=== PATIENT | male | born 1950 | race Caucasian/White ===

== ENCOUNTER 2022-11-25 21:03 | Emergency (ER) | payer MEDICARE ==
[2022-11-25 22:15] LABS: ALT 27 U/L (4-49); AST 52 U/L (17-59); African American GFR (CKD) 66 (>60 ml/min/1.73 sqM); Albumin 4.5 g/dL (3.5-5.0); Alkaline Phosphatase 123 U/L (38-126); Anion Gap 14 mmol/L; Blood Urea Nitrogen 18 mg/dL (9-20); Carbon Dioxide 19 mmol/L (22-30); Chloride 104 mmol/L (98-107); Glucose 138 mg/dL (74-99); Lipase 107 U/L (23-300); Magnesium 2.1 mg/dL (1.6-2.3); Non-African American GFR(CKD) 57 (>60 ml/min/1.73 sqM); Sodium 137 mmol/L (137-145); Total Bilirubin 0.9 mg/dL (0.2-1.3); Total Protein 8.3 g/dL (6.3-8.2)
[2022-11-25 22:16] LABS: Basophils % (A) 0 %; Eosinophils # (A) 0.1 k/uL (0-0.7); Eosinophils % (A) 1 %; HCT 38.6 % (39.0-53.0); HGB 12.7 gm/dL (13.0-17.5); Lymphocytes # (A) 0.8 k/uL (1.0-4.8); Lymphocytes % (A) 8 %; MCH 26.7 pg (25.0-35.0); MCHC 32.9 g/dL (31.0-37.0); Mean Platelet Volume 9.3; Monocytes # (A) 0.4 k/uL (0-1.0); Monocytes % (A) 4 %; Neutrophils # (A) 9.1 k/uL (1.3-7.7); Neutrophils % (A) 87 %; Platelet Count 208 k/uL (150-450); RBC 4.76 m/uL (4.30-5.90); RDW 14.3 % (11.5-15.5); WBC 10.6 k/uL (3.8-10.6)
--- NOTE | 2022-11-25 22:18 | ED ---
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 The patient stated he had significant diarrhea over the last several days with associated nausea and vomiting today. The patient did state that he was started on Ozempic as a child for his psoriasis and stated "I have never been regular or heavy normal bowel movement since that time." The patient did state that he had significant pain in the left lower quadrant of his abdomen without any radiation. The patient had multiple surgeries in his abdomen including multiple scarring surgeries from multiple hernia surgeries. The patient himself denied any fevers or chills and was resting in bed comfortably. - Related Data Home Medications Medication Instructions Recorded Confirmed ALPRAZolam [Xanax] 1 mg PO Q12HR PRN 01/17/14 05/18/14 Aspirin 81 mg PO DAILY 01/17/14 05/18/14 FLUoxetine HCL [PROzac] 40 mg PO HS 05/11/14 05/18/14 HYDROcodone/APAP 10-325MG [[place] 1 each PO Q12HR PRN 05/11/14 05/18/14 10] Metoprolol Tartrate [Lopressor] 100 mg PO HS 05/11/14 05/18/14 Previous Rx's Medication Instructions Recorded HYDROcodone/APAP 10-325MG [[place] 1 - 2 tab PO Q4HR PRN #60 tab 05/18/14 10] Ketorolac [Toradol] 10 mg PO TID #30 tab 11/26/22 Allergies Allergy/AdvReac Type Severity Reaction Status Date / Time No Known Allergies Allergy Verified 11/25/22 21:11 Review of Systems ROS Statement: Those systems with pertinent positive or pertinent negative responses have been documented in the HPI. ROS Other: All systems not noted in ROS Statement are negative. Past Medical History Past Medical History: Fibromyalgia, Hyperlipidemia, Hypertension, Skin Disorder Additional Past Medical History / Comment(s): arthritis, hx migraines, sinus problems, hiatalhernia, psoriasis, fell 11/20/14- has bruise and splint on left arm (fx elbow). 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 had abscess in throat after surgery 01/2014 at [facility] Past Psychological History: Anxiety, Depression Smoking Status: Never smoker Past Alcohol Use History: Occasional Past Drug Use History: None Reported General Exam Limitations: no limitations General appearance: alert, in no apparent distress Head exam: Present: atraumatic, normocephalic, normal inspection Eye exam: Present: normal appearance, PERRL Pupils: Present: normal accommodation ENT exam: Present: normal exam, normal oropharynx, mucous membranes moist Neck exam: Present: normal inspection, full ROM Respiratory exam: Present: normal lung sounds bilaterally Cardiovascular Exam: Present: regular rate, normal rhythm, normal heart sounds GI/Abdominal exam: Present: soft, tenderness (Tenderness of patient noted over the left lower quadrant. There was a large scar noted on the left lower quadrant as well.) Extremities exam: Present: normal inspection, other (Baseline postsurgical deformity noted to the left hand) Back exam: Present: normal inspection, full ROM Neurological exam: Present: alert, oriented X3, CN II-XII intact Psychiatric exam: Present: normal affect, normal mood Skin exam: Present: warm, dry Course Vital Signs 11/25/22 11/26/22 21:11 01:25 Temperature 98.1 F 97.9 F Pulse Rate 63 77 Respiratory 18 16 Rate Blood Pressure 181/82 131/80 O2 Sat by Pulse 98 97 Oximetry Medical Decision Making - Medical Decision Making Was pt. sent in by a medical professional or institution (, PA, MARKETING TECHNOLOGY SPECIALIST, urgent care, hospital, or [facility]...) When possible be specific @ -No Did you speak to anyone other than the patient for history (EMS, parent, family, police, friend...)? What history was obtained from this source @ -No Did you review nursing and triage notes (agree or disagree)? Why? @ -I reviewed and agree with nursing and triage notes Were old charts reviewed (outside hosp., previous admission, EMS record, old EKG, old radiological studies, urgent care reports/EKG's, [facility] records)? Report findings @ -No old charts were reviewed Differential Diagnosis (chest pain, altered mental status, abdominal pain women, abdominal pain men, vaginal bleeding, weakness, fever, dyspnea, syncope, headache, dizziness, GI bleed, back pain, seizure, CVA, palpatations, mental health)? @ -Small bowel obstruction, diverticulitis, gastroenteritis EKG interpreted by me (3pts min.). @ -None X-rays interpreted by me (1pt min.). @ -None done CT interpreted by me (1pt min.). @ -CT abdomen and pelvis with IV contrast was obtained and was interpreted by myself showing thickening and inflammatory changes involving a short segment of sigmoid colon which appears to be slightly narrowed just proximal to the above- mentioned vomited process. This could be infectious or inflammatory etiology however and underlying masses thought to be more likely as there is associated lymphadenopathy in this region according to the radiologist. There was also numerous hypodensities within the right and left hepatic lobe measuring greater than fluid density most consistent with metastatic disease. There was also mild right hydronephrosis and periureteral stranding a therapist on a sequela recent ly passed kidney stone. U/S interpreted by me (1pt. min.). @ -None done What testing was considered but not performed or refused? (CT, X-rays, U/S, labs)? Why? @ -None What meds were considered but not given or refused? Why? @ -None Did you discuss the management of the patient with other professionals (professionals i.e. , PA, MARKETING TECHNOLOGY SPECIALIST, lab, RT, psych nurse, medical social worker, charger tester, teacher, ship's officer, case management associate)? Give summary @ -No Was smoking cessation discussed for >3mins.? @ -No Was critical care preformed (if so, how long)? @ -No Were there social determinants of health that impacted care today? How? (Homelessness, low income, unemployed, alcoholism, drug addiction, transportation, low edu. Level, literacy, decrease access to med. care, shelter, rehab)? @ -No Was there de-escalation of care discussed even if they declined (Discuss DNR or withdrawal of care, Hospice)? DNR status @ -No What co-morbidities impacted this encounter? (DM, HTN, Smoking, COPD, CAD, Cancer, CVA, ARF, Chemo, Hep., AIDS, mental health diagnosis, sleep apnea, morbid obesity)? @ -Psoriasis, hypertension Was patient admitted / discharged? Hospital course, mention meds given and route, prescriptions, significant lab abnormalities, going to OR and other pertinent info. @ -The patient was seen and evaluated in emergency department. Physical exam, the patient was resting in bed with intermittent abdominal pain but without any acute active distress. Vital signs admission were stable. Due to the nature the patient's complaints, laboratory workup was obtained. Laboratory workup was within normal limits. Urinalysis did show large blood and greater than 182 RBCs likely in association with the story of a recently passed kidney stone. Computed tomography scan had significant findings including a possible mass and possible metastatic disease in the liver. The patient was told of all of these results. I did recommend the patient to be admitted to the hospital for further evaluation and workup of this possible mass and metastatic disease however the patient stated on reevaluation that his pain was completely resolved. The patient stated that he would rather be discharged home and to follow-up as an outpatient. The patient was also told the possibility of a recently passed kidney stone and he was given prescriptions for Toradol to be taken at home for pain. The patient also had significant amount of pain medications at home. The patient was advised to report back to the emergency department immediately if he had worsening abdominal pain or any other symptoms. The patient was agreeable to this and all his questions were answered appropriate. The patient understood the importance of following up with his primary care physician DARA based on his CT findings. The patient had all his questions answered appropriately as it is white. The patient was discharged home in stable condition. Undiagnosed new problem with uncertain prognosis? @ -No Drug Therapy requiring intensive monitoring for toxicity (Heparin, Nitro, Insulin, Cardizem)? @ -No Were any procedures done? @ -No Diagnosis/symptom? @ -Abdominal pain likely secondary to abdominal mass, recently passed kidney stone Acute, or Chronic, or Acute on Chronic? @ -Acute on chronic Uncomplicated (without systemic symptoms) or Complicated (systemic symptoms)? @ -Complicated Side effects of treatment? @- No Exacerbation, Progression, or Severe Exacerbation? @ -No Poses a threat to life or bodily function? How? (Chest pain, [place], MA, pneumonia, PE, COPD, DKA, ARF, appy, cholecystitis, CVA, Diverticulitis, Homicidal, Suic idal, threat to staff... and all critical care pts) @ -No - Lab Data Result diagrams: 11/25/22 21:50 11/25/22 21:50 Lab Results 11/25/22 11/25/22 11/25/22 Range/Units 21:50 21:50 22:33 WBC 10.6 (3.8-10.6) k/uL RBC 4.76 (4.30-5.90) m/uL Hgb 12.7 L (13.0-17.5) gm/dL Hct 38.6 L (39.0-53.0) % MCV 81.0 (80.0-100.0) fL MCH 26.7 (25.0-35.0) pg MCHC 32.9 (31.0-37.0) g/dL RDW 14.3 (11.5-15.5) % Plt Count 208 (150-450) k/uL MPV 9.3 Neutrophils % 87 % Lymphocytes % 8 % Monocytes % 4 % Eosinophils % 1 % Basophils % 0 % Neutrophils # 9.1 H (1.3-7.7) k/uL Lymphocytes # 0.8 L (1.0-4.8) k/uL Monocytes # 0.4 (0-1.0) k/uL Eosinophils # 0.1 (0-0.7) k/uL Basophils # 0.0 (0-0.2) k/uL Sodium 137 (137-145) mmol/L Potassium 5.2 H (3.5-5.1) mmol/L Chloride 104 (98-107) mmol/L Carbon Dioxide 19 L (22-30) mmol/L Anion Gap 14 mmol/L BUN 18 (9-20) mg/dL Creatinine 1.26 H (0.66-1.25) mg/dL Est GFR (CKD-EPI)AfAm 66 (>60 ml/min/1.73 sqM) Est GFR (CKD-EPI)NonAf 57 (>60 ml/min/1.73 sqM) Glucose 138 H (74-99) mg/dL Calcium 9.0 (8.4-10.2) mg/dL Magnesium 2.1 (1.6-2.3) mg/dL Total Bilirubin 0.9 (0.2-1.3) mg/dL AST 52 (17-59) U/L ALT 27 (4-49) U/L Alkaline Phosphatase 123 (38-126) U/L Total Protein 8.3 H (6.3-8.2) g/dL Albumin 4.5 (3.5-5.0) g/dL Lipase 107 (23-300) U/L Urine Color Yellow Urine Appearance Clear (Clear) Urine pH 6.0 (5.0-8.0) Ur Specific [place] 1.015 (1.001-1.035) Urine Protein Trace H (Negative) Urine Glucose (UA) Negative (Negative) Urine Ketones Negative (Negative) Urine Blood Large H (Negative) Urine Nitrite Negative (Negative) Urine Bilirubin Negative (Negative) Urine Urobilinogen <2.0 (<2.0) mg/dL Ur Leukocyte Esterase Negative (Negative) Urine RBC >182 H (0-5) /hpf Urine WBC 1 (0-5) /hpf Ur Squamous Epith Cells <1 (0-4) /hpf Urine Bacteria Rare H (None) /hpf Hyaline Casts 37 H (0-2) /lpf Urine Mucus Many H (None) /hpf Disposition Clinical Impression: Kidney stone, Abdominal mass Disposition: HOME SELF-CARE Condition: Stable Instructions (If sedation given, give patient instructions): Kidney Stones (ED), Acute Abdominal Pain (ED) Prescriptions: Ketorolac [Toradol] 10 mg PO TID #30 tab Is patient prescribed a controlled substance at d/c from ED?: No Referrals: Avery Lincoln MD [Primary Care Provider] - 1-2 days Edd Rabago MD [STAFF PHYSICIAN] - 1-2 days Time of Disposition: 01:00
[2022-11-25 22:44] LABS: Potassium 5.2 mmol/L (3.5-5.1)
[2022-11-25 23:37] LABS: Appearance,Urine Clear (Clear); Bacteria,Urine Rare /hpf; Bilirubin,Urine Negative (Negative); Blood,Urine Large (Negative); Color,Urine Yellow; Glucose,Urine (UA) Negative (Negative); Hyaline Casts,Urine 37 /lpf (0-2); Ketones,Urine Negative (Negative); Leukocyte Esterase,Urine Negative (Negative); Mucus,Urine Many /hpf; Nitrite,Urine Negative (Negative); Protein,Urine Trace (Negative); RBC,Urine >182 /hpf (0-5); Specific Gravity,Urine 1.015 (1.001-1.035); Squamous Epithelial Cell,Urine <1 /hpf (0-4); Urobilinogen,Urine <2.0 mg/dL (<2.0); WBC,Urine 1 /hpf (0-5)
--- NOTE | 2022-11-26 00:51 | CT ---
EXAM: CT Abdomen and Pelvis With Intravenous Contrast CLINICAL HISTORY: ITS.REASON CT Reason: Acute abdominal pain TECHNIQUE: Axial computed tomography images of the abdomen and pelvis with intravenous contrast. CTDI is 35.68 mGy and DLP is 1719.4 mGy-cm. This CT exam was performed using one or more of the following dose reduction techniques: automated exposure control, adjustment of the mA and/or kV according to patient size, and/or use of iterative reconstruction technique. COMPARISON: No relevant prior studies available. FINDINGS: Lung bases: Unremarkable. No mass. No consolidation. ABDOMEN: Liver: Numerous right hepatic lobe hypodensities measuring greater than fluid density measuring up to 3.3 x 2.2 cm. Additional areas of hypodensity within the left hepatic lobe measuring up to 2.7 cm. Gallbladder and bile ducts: Unremarkable. No calcified stones. No ductal dilation. Pancreas: Unremarkable. No mass. No ductal dilation. Spleen: Unremarkable. No splenomegaly. Adrenals: Unremarkable. No mass. Kidneys and ureters: Mild right hydroureteronephrosis and periureteral stranding. No obstructing renal or ureteral calculi present on this exam. There is delayed excretion of contrast from the right kidney when compared with the left on the delayed images suggesting some level of mild right-sided uropathy. Stomach and bowel: Unremarkable. No obstruction. No mucosal thickening. PELVIS: Appendix: No findings to suggest acute appendicitis. Bladder: Unremarkable. No mass. Reproductive: Unremarkable as visualized. ABDOMEN and PELVIS: Intraperitoneal space: Unremarkable. No free air. No significant fluid collection. Bones/joints: No acute fracture. No dislocation. Soft tissues: Unremarkable. Vasculature: Unremarkable. No abdominal aortic aneurysm. Lymph nodes: Wall thickening involving a short segment of sigmoid colon which is narrowed immediately adjacent to it in the left lower quadrant. Overall infection measures 5.5 cm in length.. There are a number of pathologically enlarged lymph nodes in the left lower quadrant adjacent to the above-mentioned process measuring 2.6 x 2.0 cm. IMPRESSION: 1. Focal wall thickening and inflammatory changes involving a short segment of sigmoid colon which appears to also be slightly narrowed just proximal to the above mentioned inflammatory process. While this may be of infectious or inflammatory etiology an underlying mass is thought to be more likely as there is significant associated lymphadenopathy in this region. 2. Numerous hypodensities within the right and left hepatic lobes measuring greater than fluid density most consistent with metastatic disease. 3. Mild right hydronephrosis and periureteral stranding may represent the sequelae of a recently passed ureteral calculus.
[2022-11-26 01:26] VITALS: BP 131/80; PULSE 77; RESP 16; TEMP 97.9
== END 2022-11-26 01:24 | disposition home or self-care (01) ==
LOC: EC 21:03
DX: N13.2 Hydronephrosis with renal and ureteral calculous obstruction (principal); R19.04 Left lower quadrant abdominal swelling, mass and lump; I10 Essential (primary) hypertension; F41.9 Anxiety disorder, unspecified; F32.A Depression, unspecified; Z79.82 Long term (current) use of aspirin; Z79.899 Other long term (current) drug therapy
CPT/HCPCS: 99284 ×2; 36415; 80053; 83690; 83735; 85025; 81001; 74177; Q9967